=== PATIENT | male | born 1955 | race Caucasian/White ===

== ENCOUNTER → 2024-08-23 | Outpatient (CLI) | payer MEDICARE, OTHER, SELFPAY ==
[2024-08-23 18:12] LABS: Absolute Lymphocyte Count 2.11 X10^3/uL (0.83-4.51); Basophil# 0.06 X10^3/uL; Basophil% 0.6 % (0-1); Eosinophil# 0.31 X10^3/uL; Hematocrit 42.1 % (40-54); Hemoglobin 14.1 g/dL (13.0-16.5); Lymphocyte # 2.11 X10^3/ul (0.83-4.51); Lymphocyte % 20.7 % (19-41); Mean Corp Hgb Conc 33.5 g/dL (32-36); Mean Corpuscular Hgb 28.6 pg (27.0-32.0); Mean Corpuscular Volume 85.4 fL (80-94); Monocyte# 0.63 X10^3/uL; Monocyte% 6.2 % (0-10); NRBC Flagged by Analyzer 0 % (0-5); Neutrophil # 7.01 X10^3/uL (2.7-7.7); Neutrophil % 68.8 % (47-70); Platelet Count 332 K/mm3 (150-450); RBC Distribution Width CV 13.1 % (11.6-14.6); RBC Distribution Width SD 40.7 fl (35.1-43.9); Red Blood Count 4.93 M/mm3 (4.6-6.2); White Blood Count 10.2 K/mm3 (4.4-11.0)
[2024-08-23 18:27] LABS: Erythrocyte Sedimentation Rate 20 mm/hr (0-20)
[2024-08-23 18:43] LABS: Syphilis Antibodies Non-reactive
[2024-08-25 16:10] LABS: Angiotensin Convert Enzyme 57 U/L (14-82)
== END | disposition home or self-care (01) ==
LOC: MTLAB 15:53
PROVIDERS: Referring Provider Ophthalmology; Visit Provider Ophthalmology
DX: H47.012 Ischemic optic neuropathy, left eye (principal)
CPT/HCPCS: 36415; 82164; 85025; 85652; 86140; 86780

== ENCOUNTER → 2024-09-02 | Outpatient (CLI) | payer MEDICARE, OTHER, SELFPAY ==
--- NOTE | 2024-09-02 13:24 | CDU_ITS ---
Reason For Study: Lt Eye Ischemic Optic Neuropathy Rt. Velocities/BP Lt. Velocities/BP Prox CCA 56.7/9.5 cm/sec. Prox CCA 108.9/13.9 cm/sec. Mid CCA 67.7/12.7 cm/sec. Mid CCA 69.9/12.7 cm/sec. Dist CCA 71.0/12.7 cm/sec. Dist CCA 64.4/7.3 cm/sec. Prox ICA 72.1/11.7 cm/sec. Prox ICA 58.9/ cm/sec. Mid ICA 61.1/13.8 cm/sec. Mid ICA 52.9/16.5 cm/sec. Dist ICA 72.1/18.2 cm/sec. Dist ICA 60.0/16.0 cm/sec. Rt. ICA/CCA = 1.1. Lt. ICA/CCA = 0.9. Prox ECA 92.8/6.4 cm/sec. Prox ECA 119.9/5.7 cm/sec. Rt. Vert. 27.0/7.3 cm/sec. Lt. Vert. 41.5/11.0 cm/sec. Right Extracranial There is heterogeneous, irregular atherosclerotic plaque noted in the right common carotid artery. There is heterogeneous, irregular atherosclerotic plaque noted in the right internal carotid artery. There is intimal thickening but no significant atherosclerotic plaque noted in the right external carotid artery. Antegrade flow is noted in the right vertebral artery. Left Extracranial There is heterogeneous, irregular atherosclerotic plaque noted in the left common carotid artery. There is heterogeneous, irregular atherosclerotic plaque noted in the left internal carotid artery. There is intimal thickening but no significant atherosclerotic plaque noted in the left external carotid artery. Antegrade flow is noted in the left vertebral artery. Procedure Carotid Duplex 28720. This is a Carotid Duplex examination using B-mode, color flow and specral Doppler. The exam was diagnostic. Exam performed in department. VL/Carotid Duplex Ultrasound Interpretation Summary Mild (<50%) stenosis right extracranial internal carotid. Mild (<50%) stenosis left extracranial internal carotid. Patent and antegrade vertebrals bilaterally. Ordering Physician: Luke Sen Referring Physician: N/A Performed By: Shaquille Elizalde RVT
== END | disposition home or self-care (01) ==
LOC: CVS 13:20
PROVIDERS: Referring Provider Ophthalmology; Visit Provider Ophthalmology
DX: H47.012 Ischemic optic neuropathy, left eye (principal); H53.412 Scotoma involving central area, left eye
CPT/HCPCS: 93880